=== PATIENT | female | born 1970 | race Caucasian/White ===

== ENCOUNTER → 2023-05-15 | Outpatient (CLI) | payer OTHER ==
[~2023-05-15] MED LIST: CALAN80 MG PO; COREG6.25 MG PO; FIORICET 325 MG1 TAB PO; HYDROCHLOROTH12.5 MG PO; K-Dur 20MEQ20 MEQ PO; LISINOPRIL10 MG PO; NORMODYNE100 MG PO; PRILOSEC20 M1 PO; SALETO800 MG PO; TAMIFLU75 MG PO; VALIUM PO
[2023-05-15 08:44] LABS: HEMATOCRIT 43.5 % (37.0-47.0); MEAN CELL VOLUME 80.3 fl (81.0-99.0); MEAN CORPUSCULAR HGB 28.4 pg (27.0-31.0); MEAN CORPUSCULAR HGB CONC 35.4 g/dl (33.0-37.0); MEAN PLATELET VOLUME 10.2 fl (9.6-12.3); RED BLOOD COUNT 5.42 10*6/uL (4.10-5.10); RED CELL DISTRI WIDTH 12.7 % (0-14.5); WHITE BLOOD COUNT 8.8 10*3/uL (4.8-10.8)
[2023-05-15 09:11] LABS: TOTAL PROTEIN 7.7 gm/dL (6.0-8.0)
[2023-05-16 12:07] LABS: LYME INTERPRETATION Lyme Abs Unconfirmed (.)
== END | disposition home or self-care (01) ==
LOC: LAB 07:57
PROVIDERS: ATTEND Family Medicine
DX: M17.0 Bilateral primary osteoarthritis of knee (principal); I10 Essential (primary) hypertension; E11.9 Type 2 diabetes mellitus without complications; E78.00 Pure hypercholesterolemia, unspecified

== ENCOUNTER 2024-09-25 15:38 | Emergency (ER) | payer OTHER ==
[~2024-09-25] VITALS: Ht 165.1 cm; Wt 77.1 kg
[2024-09-25] MEDS ORDERED: TRADJENTA5 M1 PO (17:27)
[2024-09-25] MEDS ORDERED: METFORMIN HYDR500 MG PO (17:27)
[2024-09-25] MEDS ORDERED: GLIMEPIRIDE2 MG PO (17:28)
[2024-09-25] MEDS ORDERED: NORVASC10 MG PO (17:29)
[2024-09-25] MEDS ORDERED: METOPROLOL SUCC50 M1 PO (17:30)
[2024-09-25] MEDS ORDERED: diphenhydrAMINE hydrochloride 50 MG/ML VIAL IV ONE (17:40)
[2024-09-25] MEDS ORDERED: Prochlorperazine Edisylate 10 MG/2 ML VIAL IV ONE (17:40)
[2024-09-25] MEDS ORDERED: Ketorolac Tromethamine 15 MG/ML VIAL IV ONE (17:40)
[2024-09-25] MEDS ORDERED: SODIUM CHLORIDE 0.9% 1,000 ML IV ONE (17:40)
[2024-09-25 17:51] LABS: BASO # 0.1 10*3/uL (0.0-0.1); BASO % 0.5 % (0.0-1.0); EOS # 0.1 10*3/uL (0.0-0.4); HEMATOCRIT 46.5 % (37.0-47.0); LYMPH # 2.1 10*3/uL (1.3-4.4); LYMPH % 15.2 % (27.0-41.0); MEAN CELL VOLUME 83.8 fl (81.0-99.0); MEAN CORPUSCULAR HGB 28.3 pg (27.0-31.0); MEAN CORPUSCULAR HGB CONC 33.8 g/dl (33.0-37.0); MEAN PLATELET VOLUME 10.8 fl (9.6-12.3); MONO # 1.2 10*3/uL (0.1-1.0); MONO % 8.7 % (3.0-9.0); NEUT # 10.3 10*3/uL (2.3-7.9); NEUT % 74.2 % (47.0-73.0); PLATELET COUNT AUTOMATED 258 10*3/uL (130-400); RED BLOOD COUNT 5.55 10*6/uL (4.10-5.10); RED CELL DISTRI WIDTH 12.4 % (0-14.5); WHITE BLOOD COUNT 13.9 10*3/uL (4.8-10.8)
[2024-09-25 18:13] LABS: POTASSIUM 3.2 mmol/L (3.4-5.1)
[2024-09-25] MEDS ORDERED: Labetalol Hydrochloride 20 MG/4 ML SYR IV ONE ×2 (18:25→18:45)
[2024-09-25] MEDS ORDERED: POTASSIUM CHLORIDE 20 MEQ TAB PO ONE (18:30)
[2024-09-25] MEDS ORDERED: AZITHROMYCIN 250 MG TAB PO ONE (18:30)
[2024-09-25] MEDS ORDERED: IBU800 M2 PO (18:32)
[2024-09-25] MEDS ORDERED: COMPAZINE10 M1 PO (18:32)
[2024-09-25] MEDS ORDERED: AVPAK AZITHROM250 M1 PO (18:32)
== END 2024-09-25 20:34 | disposition left against medical advice (07) ==
LOC: ED 15:38
PROVIDERS: Emergency Medicine
DX: I16.0 Hypertensive urgency (principal); G43.909 Migraine, unspecified, not intractable, without status migrainosus; E87.6 Hypokalemia; J32.9 Chronic sinusitis, unspecified; R11.2 Nausea with vomiting, unspecified; Z79.899 Other long term (current) drug therapy; Z79.84 Long term (current) use of oral hypoglycemic drugs; Z98.51 Tubal ligation status; Z98.890 Other specified postprocedural states